=== PATIENT | male | born 1995 | race Hispanic/Latino ===

== ENCOUNTER 2019-04-09 22:06 | Emergency (ER) | payer BC, OTHER ==
[~2019-04-09] VITALS: Ht 175.3 cm; Wt 131.5 kg
[2019-04-09] MEDS ORDERED: IBUPROFEN 600 MG TAB PO STA (22:59)
[2019-04-09] MEDS ORDERED: IBUPROFEN400 MG PO (23:09)
[2019-04-09] MEDS ORDERED: IBUPROFEN 200 MG TAB ONE (23:09)
[2019-04-09] MEDS ORDERED: METHOCARBAMOL750 MG PO (23:12)
[2019-04-09] MEDS ORDERED: ULTRAM 50MG50 MG PO (23:13)
[2019-04-09 23:46] VITALS: BP 150/82
== END 2019-04-09 23:48 | disposition home or self-care (01) ==
LOC: FSED 22:06
DX: S16.1XXA Strain of muscle, fascia and tendon at neck level, initial encounter (principal); S29.012A Strain of muscle and tendon of back wall of thorax, initial encounter; S39.012A Strain of muscle, fascia and tendon of lower back, initial encounter; V43.52XA Car driver injured in collision with other type car in traffic accident, initial encounter; Y92.411 Interstate highway as the place of occurrence of the external cause
CPT/HCPCS: 99282